=== PATIENT | female | born 1975 | race Caucasian/White ===

== ENCOUNTER 2021-05-06 11:12 | Outpatient (CLI) | payer BC | END 2021-05-06 11:13 | disposition home or self-care (01) | LOC: CSHMAMMO 11:12 | PROVIDERS: ATTEND Obstetrics & Gynecology | DX: Z12.31 Encounter for screening mammogram for malignant neoplasm of breast (principal); Z91.89 Other specified personal risk factors, not elsewhere classified | CPT/HCPCS: 77063; 77067 ==

== ENCOUNTER 2022-07-10 12:54 | Outpatient (CLI) | payer BC | END 2022-07-10 12:55 | disposition home or self-care (01) | LOC: CSHMAMMO 12:54 | DX: Z12.31 Encounter for screening mammogram for malignant neoplasm of breast (principal); Z91.89 Other specified personal risk factors, not elsewhere classified | CPT/HCPCS: 77063; 77067 ==